=== PATIENT | male | born 1950 | race Caucasian/White ===

== ENCOUNTER 2023-06-01 11:10 | Outpatient (CLI) | payer MEDICARE, OTHER | END 2023-06-01 11:11 | disposition home or self-care (01) | LOC: CSHRAD 11:10 | PROVIDERS: ATTEND Neurological Surgery | DX: M54.50 Low back pain, unspecified (principal); M47.816 Spondylosis without myelopathy or radiculopathy, lumbar region; M43.16 Spondylolisthesis, lumbar region | CPT/HCPCS: 72110 ==